=== PATIENT | male | born 1965 | race Caucasian/White ===

== ENCOUNTER 2022-07-24 12:19 | Inpatient (IN) ==
[2022-07-24 13:59] LABS: Basophils % 0.4 %; Eosinophils # 0.1 K/mcL (0.0-0.6); Eosinophils % 1.1 %; Hematocrit 20.4 % (37.5-50.1); Hemoglobin 7.1 g/dL (12.9-16.9); Immature Granulocytes % 0.4 % (0-4); Lymphocytes # 0.7 K/mcL (0.6-4.6); Lymphocytes % 14.3 %; Mean Corpuscular HGB Conc 34.8 g/dL (31.6-35.5); Mean Corpuscular Hemoglobin 32.6 pg (28.0-33.3); Mean Corpuscular Volume 93.6 fL (83.0-100.0); Mean Platelet Volume 11.2 fL (9.4-12.4); Monocytes # 0.3 K/mcL (0.0-1.3); Monocytes % 6.9 %; Neutrophils # 3.6 K/mcL (1.6-8.9); Platelet Count 170 K/mcL (140-400); Red Blood Count 2.18 M/mcL (4.19-5.50); Red Cell Distribution Width 13.6 % (11.5-14.5); Segmented Neutrophils % 76.9 %; White Blood Count 4.6 K/mcL (4.3-11.1)
[2022-07-24 14:18] LABS: Calcium 7.1 mg/dL (8.6-10.3); Magnesium 1.8 mg/dL (1.6-2.6); Phosphorous 6.9 mg/dL (2.7-4.5); Potassium 3.9 mEq/L (3.5-5.1)
[2022-07-24 14:36] LABS: Bacteria,Urine Few per hpf (None-Few); Bilirubin,Urine Negative (Negative); Blood,Urine Negative (Negative); Clarity,Urine Clear (Clear); Color,Urine Colorless (Yellow); Glucose,Urine (UA) Normal (Normal); Ketones,Urine Negative (Negative); Leukocyte Esterase,Urine Large (Negative); Mucus,Urine Few per lpf (None-Few); Nitrite,Urine Negative (Negative); PH,Urine 7.5 pH Units (5.0-8.0); Protein,Urine 70 mg/dL (Neg-Trace); RBC,Urine 0-3 per hpf (0-3); Specific Gravity,Urine 1.012 (1.010-1.025); Squamous Epithelial Cell,Urine Few per hpf (None-Few); Urobilinogen,Urine Normal (Normal); WBC,Urine 0-3 per hpf (0-3)
[2022-07-24] MEDS ORDERED: 0.9 % Sodium Chloride 1,000 ML IV ONE (15:03)
[2022-07-24 15:11] LABS: INR 1.1; Prothrombin Time 11.9 Seconds (9.4-12.1)
[2022-07-25] MEDS ORDERED: Naloxone 0.4 MG/ML INJ IVP PRN (01:48)
[2022-07-25] MEDS ORDERED: MOM Conc 10 ML UD.LIQ PO PRN (01:48)
[2022-07-25] MEDS ORDERED: Melatonin 3 MG TABLET PO PRN (01:48)
[2022-07-25] MEDS ORDERED: Acetaminophen 325 MG TABLET PO PRN (01:48)
[2022-07-25] MEDS ORDERED: calcitrioL 0.25 MCG CAPSULE PO SCH ×2 (03:15→09:00)
[2022-07-25] MEDS: Piperacillin/Tazobactam 3.375 GM in 0.9 % Sodium Chloride Mini Bag 100 ML IVPB SCH ×2 (05:17→17:04)
[2022-07-25] MEDS: CycloSPORINE, Mod (Neoral) 25 MG CAPSULE PO SCH ×2 (05:18→17:04)
[2022-07-25] MEDS ORDERED: Dextrose Gel 15 GM/37.5 ML TUBE PO PRN ×2 (05:36)
[2022-07-25] MEDS ORDERED: *HR* Dextrose 50 % in Water (Syg) 50 ML SYRINGE IVP PRN (05:36)
[2022-07-25] MEDS ORDERED: D5% in Water 1,000 ML IVC PRN (05:36)
[2022-07-25] MEDS ORDERED: Piperacillin/Tazobactam 3.375 GM in 0.9 % Sodium Chloride Mini Bag 100 ML IVPB SCH (06:00)
[2022-07-25] MEDS: Mycophenolate Sodium (DR) 180 MG TABLET.DR PO SCH ×2 (09:02→17:04)
[2022-07-25] MEDS: NIFEdipine XL (24 HR) 60 MG TAB.ER.24 PO SCH ×2 (09:02→21:49)
[2022-07-25] MEDS: carvediloL 6.25 MG TABLET PO SCH ×2 (09:03→17:04)
[2022-07-25] MEDS: cloNIDine HCL 0.1 MG TABLET PO SCH ×3 (09:03→21:49)
[2022-07-25] MEDS: Insulin LISPRO 300 UNITS/3 ML VIAL SUBQ SCH ×4 (09:07→20:50)
[2022-07-25 09:23] LABS: Basophils % 0.4 %; Eosinophils % 0.8 %; Hematocrit 21.2 % (37.5-50.1); Hemoglobin 7.1 g/dL (12.9-16.9); Immature Granulocytes % 0.6 % (0-4); Lymphocytes # 0.6 K/mcL (0.6-4.6); Lymphocytes % 12.2 %; Mean Corpuscular HGB Conc 33.5 g/dL (31.6-35.5); Mean Corpuscular Hemoglobin 31.8 pg (28.0-33.3); Mean Corpuscular Volume 95.1 fL (83.0-100.0); Mean Platelet Volume 10.6 fL (9.4-12.4); Monocytes # 0.3 K/mcL (0.0-1.3); Monocytes % 6.7 %; Neutrophils # 3.8 K/mcL (1.6-8.9); Platelet Count 190 K/mcL (140-400); Red Blood Count 2.23 M/mcL (4.19-5.50); Red Cell Distribution Width 13.4 % (11.5-14.5); Segmented Neutrophils % 79.3 %; White Blood Count 4.8 K/mcL (4.3-11.1)
[2022-07-25 09:38] LABS: Albumin 3.9 g/dL (3.5-5.7); Albumin/Globulin Ratio 1.8 (1.1-2.2); Bilirubin,Direct 0.1 mg/dL (0.0-0.2); Bilirubin,Indirect 0.3 mg/dL (0.0-1.0); Bilirubin,Total 0.4 mg/dL (0.3-1.0); Calcium 7.2 mg/dL (8.6-10.3); Globulin 2.2 g/dL (2.4-3.5); Total Protein 6.1 g/dL (6.4-8.9)
[2022-07-25 10:17] LABS: Folate > 22.3 ng/mL (3.0-16.0); Vitamin B12 962 pg/mL (250-1100)
[2022-07-25 10:39] LABS: Uric Acid 11.5 mg/dL (2.3-7.6)
[2022-07-25 10:43] LABS: Sodium, Urine 43.7 mEq/L
[2022-07-25] MEDS: 0.9 % Sodium Chloride 1,000 ML IV SCH (12:11)
[2022-07-25] MEDS: Ondansetron ODT 4 MG TAB.RAPDIS SL PRN (21:24)
[2022-07-26 02:39] LABS: Basophils % 0.4 %; Eosinophils % 0.8 %; Hematocrit 19.7 % (37.5-50.1); Hemoglobin 6.7 g/dL (12.9-16.9); Immature Granulocytes % 0.6 % (0-4); Lymphocytes # 0.6 K/mcL (0.6-4.6); Lymphocytes % 11.9 %; Mean Corpuscular Hemoglobin 32.4 pg (28.0-33.3); Mean Corpuscular Volume 95.2 fL (83.0-100.0); Mean Platelet Volume 10.6 fL (9.4-12.4); Monocytes # 0.4 K/mcL (0.0-1.3); Monocytes % 7.8 %; Platelet Count 169 K/mcL (140-400); Red Blood Count 2.07 M/mcL (4.19-5.50); Red Cell Distribution Width 13.7 % (11.5-14.5); Segmented Neutrophils % 78.5 %; White Blood Count 5.1 K/mcL (4.3-11.1)
[2022-07-26 03:00] LABS: Calcium 7.2 mg/dL (8.6-10.3)
[2022-07-26] MEDS: CycloSPORINE, Mod (Neoral) 25 MG CAPSULE PO SCH ×2 (04:06→16:42)
[2022-07-26] MEDS: 0.9 % Sodium Chloride 1,000 ML IV SCH (04:07)
[2022-07-26] MEDS: Piperacillin/Tazobactam 3.375 GM in 0.9 % Sodium Chloride Mini Bag 100 ML IVPB SCH ×2 (04:07→16:50)
[2022-07-26] MEDS: Insulin LISPRO 300 UNITS/3 ML VIAL SUBQ SCH ×4 (09:03→20:39)
[2022-07-26] MEDS: carvediloL 6.25 MG TABLET PO SCH ×2 (09:03→16:42)
[2022-07-26] MEDS: Mycophenolate Sodium (DR) 180 MG TABLET.DR PO SCH ×2 (09:04→16:42)
[2022-07-26] MEDS: NIFEdipine XL (24 HR) 60 MG TAB.ER.24 PO SCH ×2 (09:04→20:29)
[2022-07-26] MEDS: cloNIDine HCL 0.1 MG TABLET PO SCH ×3 (09:04→20:29)
[2022-07-26] MEDS: Sodium Bicarbonate 75 MEQ in 0.45 % Sodium Chloride 1,000 ML IVC SCH ×2 (09:11→20:11)
[2022-07-26] MEDS ORDERED: 0.9 % Sodium Chloride 250 ML ONE (10:37)
[2022-07-26] MEDS: Ondansetron ODT 4 MG TAB.RAPDIS SL PRN (13:38)
[2022-07-27 01:32] LABS: Basophils % 0.3 %; Eosinophils # 0.1 K/mcL (0.0-0.6); Eosinophils % 1.2 %; Hematocrit 21.5 % (37.5-50.1); Hemoglobin 7.4 g/dL (12.9-16.9); Immature Granulocytes % 0.3 % (0-4); Lymphocytes # 0.6 K/mcL (0.6-4.6); Lymphocytes % 9.9 %; Mean Corpuscular HGB Conc 34.4 g/dL (31.6-35.5); Mean Corpuscular Hemoglobin 32.2 pg (28.0-33.3); Mean Corpuscular Volume 93.5 fL (83.0-100.0); Mean Platelet Volume 10.3 fL (9.4-12.4); Monocytes # 0.6 K/mcL (0.0-1.3); Neutrophils # 4.4 K/mcL (1.6-8.9); Platelet Count 166 K/mcL (140-400); Red Cell Distribution Width 14.5 % (11.5-14.5); Segmented Neutrophils % 77.3 %; White Blood Count 5.7 K/mcL (4.3-11.1)
[2022-07-27 01:52] LABS: Calcium 7.2 mg/dL (8.6-10.3); Potassium 3.9 mEq/L (3.5-5.1)
[2022-07-27] MEDS: CycloSPORINE, Mod (Neoral) 25 MG CAPSULE PO SCH ×2 (04:01→16:12)
[2022-07-27] MEDS: Piperacillin/Tazobactam 3.375 GM in 0.9 % Sodium Chloride Mini Bag 100 ML IVPB SCH ×2 (04:01→16:12)
[2022-07-27] MEDS: Sodium Bicarbonate 75 MEQ in 0.45 % Sodium Chloride 1,000 ML IVC SCH (06:53)
[2022-07-27] MEDS: Insulin LISPRO 300 UNITS/3 ML VIAL SUBQ SCH ×3 (07:06→16:05)
[2022-07-27] MEDS: NIFEdipine XL (24 HR) 60 MG TAB.ER.24 PO SCH (07:30)
[2022-07-27] MEDS: Mycophenolate Sodium (DR) 180 MG TABLET.DR PO SCH ×2 (07:31→16:11)
[2022-07-27] MEDS: carvediloL 6.25 MG TABLET PO SCH ×2 (07:31→16:11)
[2022-07-27] MEDS: cloNIDine HCL 0.1 MG TABLET PO SCH ×2 (07:31→16:12)
[2022-07-27 12:31] VITALS: BP 153/63; PULSE 89; TEMP 98.1; O2SAT 94
== END 2022-07-27 18:16 | disposition short-term general hospital (02) | DRG 683 ==
LOC: EMEROOARM 12:19 → 2ANU 12:19 → SUATTDRO 07-25 04:16
PROVIDERS: ADMIT Internal Medicine; ATTEND Internal Medicine